=== PATIENT | male | born 1975 | race Caucasian/White ===

== ENCOUNTER → 2020-10-27 | Outpatient (CLI) | payer BC ==
--- NOTE | 2020-10-27 14:30 | Diagnostic Imaging Report ---
INDICATION: Thyroid nodule Thyroid sonography performed in the routine fashion. There is no prior study for comparison The right thyroid lobe measured 5.4 x 1.8 x 1.9 cm. Left thyroid lobe measured 5.7 x 1.9 x 1.9 cm. There is a small hyperechoic nodule in the midportion of the right thyroid lobe measuring 5 x 7 x 3 mm. The left thyroid lobe show no focal lesion. The thyroid isthmus measured 3 mm and appeared unremarkable. IMPRESSION: Small vague 3 x 5 x 7 mm hyperechoic nodule in right thyroid lobe. Otherwise negative. Dictated by: Dictated on workstation # [id number]
== END ==
LOC: RAD 10:08
DX: E04.1 Nontoxic single thyroid nodule (principal)
CPT/HCPCS: 76536

== ENCOUNTER → 2022-11-07 | Outpatient (CLI) | payer SELFPAY ==
--- NOTE | 2022-11-07 15:40 | Diagnostic Imaging Report ---
CT CARDIAC CALCIUM SCORE INDICATION: Hyperlipidemia COMPARISON: None available. TECHNIQUE: Limited noncontrast CT imaging of the coronary arteries was performed. [employer] and equipment utilized for dose optimization. FINDINGS: No coronary artery calcium is identified. Therefore the total coronary calcium score is 0 placing the patient at the 0 percentile. There are few scattered calcified granulomas within the lungs and left hilum. No incidental abnormality that would require further workup. IMPRESSION: Coronary artery calcium score is 0. Dictated by: Dictated on workstation # [id number]
== END ==
LOC: RAD 10:07
PROVIDERS: ATTEND Internal Medicine
DX: E78.5 Hyperlipidemia, unspecified (principal)
CPT/HCPCS: 75571